=== PATIENT | female | born 1940 ===

== ENCOUNTER 2017-12-22 11:48 | Day surgery (SDC) | payer OTHER ==
[~2017-12-22 11:48] MED LIST: NEURONTIN600 MG PO; PREVACID30 M1 PO; ULTRACET; ZANTAC300 MG PO
== END 2017-12-22 19:10 | disposition home or self-care (01) ==
LOC: CIR.AMB 11:48
DX: S32.018A Other fracture of first lumbar vertebra, initial encounter for closed fracture (principal)